=== PATIENT | male | born 1985 | race Caucasian/White ===

== ENCOUNTER 2018-11-25 17:33 | Inpatient (IN) | payer OTHER ==
--- NOTE | 2018-11-25 19:10 | HP ---
CIWA Score Nausea/Vomitin Muscle Tremors: 2 Anxiety: 3 Agitation: 2 Paroxysmal Sweats: 2 Orientation: 0-Oriented Tacttile Disturbances: 0-None Auditory Disturbances: 0-None Visual Disturbances: 0-None Headache: 0-None Present CIWA-Ar Total Score: 12 - Admission Criteria OASAS Guidelines: Admission for Medically Managed Detox: Requires at least one of the followin. CIWA greater than 12 2. Seizures within the past 24 hours 3. Delirium tremens within the past 24 hours 4. Hallucinations within the past 24 hours 5. Acute intervention needed for co occurring medical disorder 6. Acute intervention needed for co occurring psychiatric disorder 7. Severe withdrawal that cannot be handled at a lower level of care (continued vomiting, continued diarrhea, abnormal vital signs) requiring intravenous medication and/or fluids 8. Patient presents the following: CIWA greater than 12 Admission Criteria Met: Admission criteria met Admission ROS [facility] Chief Complaint: alcohol withdrawal symptoms Allergies/Adverse Reactions: Allergies Allergy/AdvReac Type Severity Reaction Status Date / Time No Known Allergies Allergy Verified 11/25/18 18:25 History of Present Illness: Patient is a 32 yo male with hx of K2, nicotine, alcohol, crack/cocaine, and heroin dependence is here seeking detox. Last detox Sep 2018 at [facility]. Denies hx of blackouts when consuming " a lot" of alcohol, last episode 2011. Reports prior hx of MAT with suboxone and stopped attending treatment. Denies hx seizures. Hx of overdose x 4, last episode April 2018. PMHX: Asthma, Schizo affective, bipolar, PTSD and anxiety. Denies suicidal / homicidal ideation. Reports hx of suicide on March 2015 admitted [facility] psych. Longest period of sobriety three months. Others' Prescriptions Patient Name: David Wright Date: 1985 Address: [address] [place] [address] Sex: Male Rx Written Rx Dispensed Drug Quantity Days Supply Prescriber Name 10/29/2018 10/29/2018 clonazepam 1 mg tablet 60 30 [facility] ( [facility] 09/19/2018 09/19/2018 clonazepam 1 mg tablet 14 14 DimFadia bryan ( [facility]) 09/12/2018 09/12/2018 clonazepam 2 mg tablet 60 30 Fadia Chavez ( [facility]) 07/29/2018 07/29/2018 clonazepam 1 mg tablet 120 30 Carola Yadav ([facility]) 06/10/2018 06/10/2018 clonazepam 1 mg tablet 120 30 JorgeharikatristinCarola ([facility]) Patient Name: David Wright Date: 1985 Address: [address] [facility] [place] [address] Sex: Male Rx Written Rx Dispensed Drug Quantity Days Supply Prescriber Name 07/04/2018 07/08/2018 clonazepam 2 mg tablet 30 15 Kimani Jean Patient Name: David Wright Date: 1985 Address: [address] [place] [employer], [place] [id number] Sex: Male Rx Written Rx Dispensed Drug Quantity Days Supply Prescriber Name 05/30/2018 05/30/2018 suboxone 12 mg-3 mg sl film 7 7 [place], [place] 05/14/2018 05/14/2018 suboxone 8 mg-2 mg sl film 15 15 [facility] 05/14/2018 05/14/2018 clonazepam 2 mg tablet 60 30 [facility] 04/01/2018 04/01/2018 clonazepam 2 mg tablet 60 30 Christian Cooper MD Exam Limitations: No Limitations - Ebola screening Have you traveled outside of the country in the last 21 days: No (N) Have you had contact with anyone from an Ebola affected area: No Do you have a fever: No - Review of Systems Constitutional: Chills, Loss of Appetite, Changes in sleep, Unintentional Wgt. Loss EENT: reports: No Symptoms Reported Respiratory: reports: No Symptoms reported Cardiac: reports: No Symptoms Reported GI: reports: Nausea, Poor Appetite, Poor Fluid Intake, Vomiting : reports: No Symptoms Reported Musculoskeletal: reports: Back Pain Integumentary: reports: Dryness, Pruritus Neuro: reports: No Symptoms reported Endocrine: reports: Increased Thirst Hematology: reports: No Symptoms Reported Psychiatric: reports: Orientated x3, Anxious Other Systems: Reviewed and Negative Patient History - Patient Medical History Hx Anemia: No Hx Asthma: Yes Hx Chronic Obstructive Pulmonary Disease (COPD): No Hx Cancer: No Hx Cardiac Disorders: No Hx Congestive Heart Failure: No Hx Hypertension: No Hx Hypercholesterolemia: No Hx Pacemaker: No HX Cerebrovascular Accident: No Hx Seizures: No Hx Dementia: No Hx Diabetes: No Hx Gastrointestinal Disorders: No Hx Liver Disease: No Hx Genitourinary Disorders: No Hx Sexually Transmitted Disorders: No Hx Renal Disease (ESRD): No Hx Thyroid Disease: No Hx Human Immunodeficiency Virus (HIV): No Hx Hepatitis C: No Hx Depression: Yes Hx Suicide Attempt: Yes Hx Schizophrenia: Yes (uicide on March 2015 admitted [facility] psych) - Patient Surgical History Past Surgical History: No - PPD History Previous Implant?: No - Smoking Cessation Smoking history: Current every day smoker Have you smoked in the past 12 months: Yes Aproximately how many cigarettes per day: 4 Hx Chewing Tobacco Use: No Initiated information on smoking cessation: Yes 'Breaking Loose' booklet given: 11/25/18 - Substance & Tx. History Hx Alcohol Use: Yes Hx Substance Use: Yes Substance Use Type: Alcohol, Cocaine, Heroin Hx Substance Use Treatment: Yes (Last detox Sep 2018 at [facility]. ) - Substances abused Alcohol Substance route: Oral Frequency: Daily Amount used: 1/2 pint liquor Age of first use: 16 (use 1/2 pint as of in past year ) Date of last use: 11/25/18 Heroin Substance route: Inhalation Frequency: Daily Amount used: 4 bags Age of first use: 23 (use 4 bags since 2014) Date of last use: 12/20/18 Crack Substance route: Smoking Frequency: Daily Amount used: 4 bags Age of first use: 19 (use four bags since 29 yo ) Date of last use: 11/25/18 K2/Spice Substance route: Smoking Frequency: Daily Amount used: 3 joints Age of first use: 29 Date of last use: 11/25/18 Family Disease History - Family Disease History Family History: Denies Admission Physical Exam [facility] - Vital Signs Vital Signs: Vital Signs - 24 hr 11/25/18 18:49 Temperature 97.8 F Pulse Rate 87 Respiratory 20 Rate Blood Pressure 110/61 - Physical General Appearance: Yes: Appropriately Dressed, Mild Distress, Thin, Sweating, Anxious HEENTM: Yes: EOMI, Hearing grossly Normal, Normal ENT Inspection, Normocephalic , Normal Voice, EZEQUIEL, Pharynx Normal, Tm's normal, Other (cheilitis) Respiratory: Yes: Chest Non-Tender, Lungs Clear, Normal Breath Sounds, No Respiratory Distress, No Accessory Muscle Use Neck: Yes: Within Normal Limits Breast: Yes: Breast Exam Deferred Cardiology: Yes: Regular Rhythm, Regular Rate Abdominal: Yes: Normal Bowel Sounds, Non Tender, Flat, Soft Genitourinary: Yes: Within Normal Limits Back: Yes: Normal Inspection Musculoskeletal: Yes: full range of Motion, Gait Steady, Pelvis Stable Extremities: Yes: Normal Capillary Refill, Normal Inspection, Normal Range of Motion Neurological: Yes: gourmet coffee attendant II-XII NML intact, Fully Oriented, Alert, Motor Strength 5/5, Depressed Affect Integumentary: Yes: Normal Color, Warm, Diaphoresis Lymphatic: Yes: Within Normal Limits - Diagnostic (1) Alcohol dependence with uncomplicated withdrawal Current Visit: Yes Status: Acute (2) Cocaine dependence Current Visit: Yes Status: Acute Qualifiers: Substance use status: uncomplicated Qualified Code(s): F14.20 - Cocaine dependence, uncomplicated (3) Heroin dependence Current Visit: Yes Status: Acute (4) Illicit drug use Current Visit: Yes Status: Acute (5) Nicotine dependence Current Visit: Yes Status: Acute Qualifiers: Nicotine product type: cigarettes (6) Asthma Current Visit: Yes Status: Chronic Qualifiers: Asthma severity: mild Asthma persistence: unspecified Asthma complication type: unspecified Qualified Code(s): J45.909 - Unspecified asthma , uncomplicated Cleared for Admission S - Detox or Rehab [facility] Level of Care: Medically Managed Detox Regimen/Protocol: Valium Breathalyzer - Breathalyzer Breathalyzer: 0 Urine Drug Screen - Test Device Lot number: [id number] Expiration date: 11/24/19 - Control Is test valid?: Yes - Results Drug screen NEGATIVE: No Urine drug screen results: THC-Marijuana, WHIT-Cocaine Inpatient Rehab Admission - Rehab Decision to Admit Inpatient rehab admission?: No
[2018-11-25] MEDS ORDERED: ACETAMINOPHEN 325 MG TABLET (FP) PO PRN ×2 (19:18)
[2018-11-25] MEDS ORDERED: MENTHOL/PHENOL 1 EACH UD MM PRN (19:18)
[2018-11-25] MEDS ORDERED: MAGNESIUM HYDROX 2400MG/30ML ORAL SUSPENSION 30 ML CUP PO PRN (19:18)
[2018-11-25] MEDS ORDERED: IBUPROFEN 400 MG TABLET (FP) PO PRN (19:18)
[2018-11-25] MEDS ORDERED: diazePAM 5 MG TABLET PO PRN (19:18)
[2018-11-25] MEDS ORDERED: MAG HYDROX/AL HYDROX/SIMETH 30 ML UNIT-DOSE CUP PO PRN (19:18)
[2018-11-25] MEDS ORDERED: MAGNESIUM CITRATE 300 ML BOTTLE PO PRN (19:18)
[2018-11-25] MEDS ORDERED: BISMUTH SUBSALICYLATE 524 MG/30 ML UD PO PRN (19:18)
[2018-11-25] MEDS ORDERED: P-EPHED 60MG/TRIPROLIDI 2.5MG TABLET PO PRN (19:18)
[2018-11-25] MEDS ORDERED: METHOCARBAMOL 500 MG TABLET PO PRN (19:18)
[2018-11-25] MEDS ORDERED: hydrOXYzine PAMOATE 25 MG CAPSULE (FP) PO PRN (19:18)
[2018-11-25] MEDS ORDERED: guaiFENesin 200 MG/10 ML 10 ML UNIT-DOSE CUPS PO PRN (19:18)
[2018-11-25] MEDS ORDERED: NICOTINE POLACRILEX 2 MG GUM BUC PRN (19:18)
[2018-11-25] MEDS: diazePAM 5 MG TABLET PO SCH (21:04)
[2018-11-25] MEDS: THIAMINE HCL 100 MG TABLET (FP) PO SCH (21:06)
[2018-11-26] MEDS: diazePAM 5 MG TABLET PO SCH ×3 (05:53→22:08)
[2018-11-26 10:04] LABS: HEMATOCRIT 43.9 % (35.4-49); HEMOGLOBIN 14.8 GM/dL (11.7-16.9); MCH 31.8 pg (25.7-33.7); MCHC 33.8 g/dl (32.0-35.9); MEAN PLT VOLUME 8.8 fl (7.5-11.1); PLATELET COUNT 207 K/MM3 (134-434); RBC 4.66 M/mm3 (4.00-5.60); RDW 14.5 % (11.9-15.9); WHITE BLOOD COUNT 4.7 K/mm3 (4.0-10.0)
[2018-11-26] MEDS: PRENATAL VITAMINS W/ FOLIC ACID TABLET (FP) PO SCH (10:22)
[2018-11-26] MEDS: NICOTINE 14 MG/24 HOURS TOPICAL PATCH TD SCH (10:22)
[2018-11-26 10:38] LABS: ALBUMIN 4.1 g/dl (3.4-5.0); ALK PHOS 97 U/L (45-117); ANION GAP 4 MMOL/L (8-16); BLOOD UREA NITROGEN 13 mg/dL (7-18); CALCIUM 9.1 mg/dL (8.5-10.1); CHLORIDE 107 mmol/L (98-107); CO2 28 mmol/L (21-32); GLUCOSE,RANDOM 100 mg/dL (74-106); POTASSIUM 4.2 mmol/L (3.5-5.1); SGOT/AST 218 U/L (15-37); SGPT/ALT 516 U/L (13-61); SODIUM 139 mmol/L (136-145); TOT PROT 7.3 g/dl (6.4-8.2)
[2018-11-26 12:38] LABS: EPI CELLS 0.4 /HPF (0-5); PH,URINE 6.5 (5.0-8.0); URINE APPEARANCE TURBID; URINE BACTERIA 109.7 /hpf (NEGATIVE); URINE BILIRUBIN NEGATIVE (NEGATIVE); URINE CASTS 13 /hpf (0-8); URINE COLOR DK YELLOW; URINE GLUCOSE (UA) NEGATIVE (NEGATIVE); URINE KETONE TRACE (NEGATIVE); URINE LEUK ESTERASE TRACE (NEGATIVE); URINE NITRITE NEGATIVE (NEGATIVE); URINE PROTEIN NEGATIVE (NEGATIVE); URINE RBC 1 /hpf (0-4); URINE WBC 0 /hpf (0-5)
[2018-11-26 13:00] LABS: URINE CRYSTALS CALCIUM OXALTE SEEN /hpf
--- NOTE | 2018-11-26 14:46 | EKG ---
Test Reason : Blood Pressure : / mmHG Vent. Rate : 065 BPM Atrial Rate : 065 BPM P-R Int : 152 ms QRS Dur : 090 ms QT Int : 384 ms P-R-T Axes : 053 062 053 degrees QTc Int : 399 ms NORMAL SINUS RHYTHM NORMAL ECG NO PREVIOUS ECGS AVAILABLE Confirmed by Sean Ochoa ([id number]) on 11/26/2018 2:46:01 PM Referred By: AMOS CASILLAS Confirmed By:Sean Ochoa
--- NOTE | 2018-11-26 15:18 | PN ---
S CIWA - CIWA Score Nausea/Vomitin Muscle Tremors: 3 Anxiety: 0-No Anxiety, at Ease Agitation: 0-Normal Activity Paroxysmal Sweats: 3 Orientation: 0-Oriented Tacttile Disturbances: 2-Mild Itch/Numbness/Burn Auditory Disturbances: 0-None Visual Disturbances: 2-Mild Sensitivity Headache: 0-None Present CIWA-Ar Total Score: 12 BHS Progress Note (SOAP) Subjective: Sweating, Fatigue, Chills, Tremors. Objective: PATIENT A & O X 3, OBSERVED AMBULATING ON UNIT. IN NO ACUTE DISTRESS. 11/26/18 15:15 Vital Signs Temperature 97.1 F L 11/26/18 13:19 Pulse Rate 72 11/26/18 13:19 Respiratory Rate 18 11/26/18 13:19 Blood Pressure 102/66 11/26/18 13:19 O2 Sat by Pulse Oximetry (%) Laboratory Tests 11/26/18 11/26/18 11/26/18 00:00 07:00 07:00 WBC 4.7 RBC 4.66 Hgb 14.8 Hct 43.9 MCV 94.0 MCH 31.8 MCHC 33.8 RDW 14.5 Plt Count 207 MPV 8.8 Sodium 139 Potassium 4.2 Chloride 107 Carbon Dioxide 28 Anion Gap 4 L BUN 13 Creatinine 1.0 Creat Clearance w eGFR 86.60 Random Glucose 100 Calcium 9.1 Total Bilirubin 1.0 AST 218 H ALT 516 H Alkaline Phosphatase 97 Total Protein 7.3 Albumin 4.1 Urine Color Dk yellow Urine Appearance Turbid Urine pH 6.5 Ur Specific [place] 1.025 Urine Protein Negative Urine Glucose (UA) Negative Urine Ketones Trace H Urine Blood Negative Urine Nitrite Negative Urine Bilirubin Negative Urine Urobilinogen 1.0 Ur Leukocyte Esterase Trace Urine WBC (Auto) 0 Urine RBC (Auto) 1 Urine Casts (Auto) 13 U Epithel Cells (Auto) 0.4 Urine Crystals (Auto) Calcium oxalte seen Urine Bacteria (Auto) 109.7 LABS NOTED. RPR RESULT PENDING. 11/26/18 15:17 Assessment: 11/26/18 15:16 WITHDRAWAL SYMPTOMS. ELEVATED LIVER ENZYMES. Plan: CONTINUE DETOX. INCREASE DAILY PO FLUID INTAKE. REPEAT AST, ALT TOMORROW AM FOR ELEVATED ADMISSION LEVELS.
--- NOTE | 2018-11-26 15:42 | CONSULT ---
[facility] Psychiatric Consult - Data Date of interview: 11/26/18 Admission source: [facility] Identifying data: First admission to [facility] for this 32 y/o male self-referred for detoxification treatment (heroin, cocaine, K2). Examined at [address] [place] [address]. Patient is single, no children, homeless (resides in a snf), unemployed and supported on SSI benefits. Substance Abuse History: Confirmed by the patient in this interview. Details in current [facility] report : Smoking history: Current every day smoker. Have you smoked in the past 12 months: Yes. Aproximately how many cigarettes per day: 4. Hx Chewing Tobacco Use: No. Initiated information on smoking cessation: Yes. 'Breaking Loose' booklet given: 11/25/18. - Substance & Tx. History. Hx Alcohol Use: Yes. Hx Substance Use: Yes. Substance Use Type: Alcohol, Cocaine , Heroin. Hx Substance Use Treatment: Yes (Last detox Sep 2018 at [facility]. ). - Substances abused. Alcohol. Substance route: Oral. Frequency: Daily. Amount used: 1/2 pint liquor. Age of first use: 16 (use 1/2 pint as of in past year ). Date of last use: 11/25/18. Heroin. Substance route: Inhalation. Frequency: Daily. Amount used: 4 bags. Age of first use: 23 (use 4 bags since 2014). Date of last use: 12/20/18. Crack. Substance route: Smoking. Frequency: Daily. Amount used: 4 bags. Age of first use: 19 ( use four bags since 29 yo ). Date of last use: 11/25/18. K2/Spice. Substance route: Smoking. Frequency: Daily. Amount used: 3 joints. Age of first use: 29. Date of last use: 11/25/18 Medical History: Patient endorses good general health. History of bronchial asthma. Psychiatric History: Patient admits to a history of multiple psychiatric hospitalizations ([facility], [facility]-2). Onset of psychiatric disturbances : age 19. Diagnosed with " Schizophrenia and Bipolar Disorder ". Mr Wright reports past treatment on various regimens consisting of olanzapine, quetiapine, gabapentin, clonazepam and other unnamed formulations. NOT adherent to medications " for past TWO weeks ". Patient is officially connected with [facility] in the [place]. Multiple suicide attempts via overdoses with dugs (most recent attempt occurred in 2014). Physical/Sexual Abuse/Trauma History: Patient denies history of abuse. Estranged from his relatives. Additional Comment: Urine drug screen results: THC-Marijuana, WHIT-Cocaine. Noted. Mental Status Exam - Mental Status Exam Alert and Oriented to: Time, Place, Person Cognitive Function: Good Patient Appearance: Well Groomed (tattoos on both forearms) Mood: Nervous, Withdrawn Affect: Mood Congruent Patient Behavior: Fatigued, Talkative, Appropriate, Cooperative Speech Pattern: Clear, Appropriate Voice Loudness: Normal Thought Process: Goal Oriented Thought Disorder: Not Present Hallucinations: Denies Suicidal Ideation: Denies Homicidal Ideation: Denies Insight/Judgement: Poor Sleep: Poorly, Difficulty falling asleep Appetite: Good Muscle strength/Tone: Normal Gait/Station: Normal Psychiatric Findings - Problem List ([place] 1, 2,3) (1) Alcohol dependence with uncomplicated withdrawal Current Visit: Yes Status: Acute (2) Cocaine dependence Current Visit: Yes Status: Chronic Qualifiers: Substance use status: uncomplicated Qualified Code(s): F14.20 - Cocaine dependence, uncomplicated (3) Heroin dependence Current Visit: Yes Status: Chronic (4) Nicotine dependence Current Visit: Yes Status: Chronic Qualifiers: Nicotine product type: cigarettes (5) History of bipolar disorder Current Visit: Yes Status: Chronic (6) Insomnia Current Visit: Yes Status: Chronic (7) Non-compliant patient Current Visit: Yes Status: Chronic - Initial Treatment Plan Initial Treatment Plan: Psychoeducation. Sleep hygiene. Support. Detoxification. AA/NA meetings. Relapse prevention : discussed with the patient. Motivational sessions. Groups. Patient has expressed the wish to enlist in rehabilitation at completion of this program. Social work team will follow. Seroquel 100 mg po hs at patient's request. Side effects/benefits are discussed. Consent (verbal) granted to MD. Soriano.
[2018-11-26] MEDS: THIAMINE HCL 100 MG TABLET (FP) PO SCH (22:09)
[2018-11-26] MEDS: MELATONIN 5 MG TABLETS PO PRN (22:09)
[2018-11-27] MEDS: PRENATAL VITAMINS W/ FOLIC ACID TABLET (FP) PO SCH (10:26)
[2018-11-27] MEDS: diazePAM 5 MG TABLET PO SCH ×2 (10:26→22:26)
[2018-11-27] MEDS: NICOTINE 14 MG/24 HOURS TOPICAL PATCH TD SCH (10:26)
[2018-11-27 13:01] LABS: SGOT/AST 189 U/L (15-37); SGPT/ALT 497 U/L (13-61)
--- NOTE | 2018-11-27 16:48 | PN ---
S CIWA - CIWA Score Nausea/Vomitin-No Nausea/No Vomiting Muscle Tremors: 3 Anxiety: 2 Agitation: 0-Normal Activity Paroxysmal Sweats: 3 Orientation: 0-Oriented Tacttile Disturbances: 1-Very Mild Itch/Numbness Auditory Disturbances: 0-None Visual Disturbances: 1-Very Mild Sensitivity Headache: 0-None Present CIWA-Ar Total Score: 10 BHS Progress Note (SOAP) Subjective: Sweating, Fatigue, Tremors. Objective: PATIENT A & O X 3, OBSERVED AMBULATING ON UNIT. IN NO ACUTE DISTRESS. 11/27/18 16:49 Vital Signs Temperature 98.3 F 11/27/18 14:25 Pulse Rate 72 11/27/18 14:25 Respiratory Rate 18 11/27/18 14:25 Blood Pressure 114/69 11/27/18 14:25 O2 Sat by Pulse Oximetry (%) Laboratory Tests 11/26/18 11/26/18 11/26/18 00:00 07:00 07:00 WBC 4.7 RBC 4.66 Hgb 14.8 Hct 43.9 MCV 94.0 MCH 31.8 MCHC 33.8 RDW 14.5 Plt Count 207 MPV 8.8 Sodium 139 Potassium 4.2 Chloride 107 Carbon Dioxide 28 Anion Gap 4 L BUN 13 Creatinine 1.0 Creat Clearance w eGFR 86.60 Random Glucose 100 Calcium 9.1 Total Bilirubin 1.0 AST 218 H ALT 516 H Alkaline Phosphatase 97 Total Protein 7.3 Albumin 4.1 Urine Color Dk yellow Urine Appearance Turbid Urine pH 6.5 Ur Specific [place] 1.025 Urine Protein Negative Urine Glucose (UA) Negative Urine Ketones Trace H Urine Blood Negative Urine Nitrite Negative Urine Bilirubin Negative Urine Urobilinogen 1.0 Ur Leukocyte Esterase Trace Urine WBC (Auto) 0 Urine RBC (Auto) 1 Urine Casts (Auto) 13 U Epithel Cells (Auto) 0.4 Urine Crystals (Auto) Calcium oxalte seen Urine Bacteria (Auto) 109.7 RPR Titer 11/26/18 11/27/18 07:00 07:00 WBC RBC Hgb Hct MCV MCH MCHC RDW Plt Count MPV Sodium Potassium Chloride Carbon Dioxide Anion Gap BUN Creatinine Creat Clearance w eGFR Random Glucose Calcium Total Bilirubin AST 189 H ALT 497 H Alkaline Phosphatase Total Protein Albumin Urine Color Urine Appearance Urine pH Ur Specific [place] Urine Protein Urine Glucose (UA) Urine Ketones Urine Blood Urine Nitrite Urine Bilirubin Urine Urobilinogen Ur Leukocyte Esterase Urine WBC (Auto) Urine RBC (Auto) Urine Casts (Auto) U Epithel Cells (Auto) Urine Crystals (Auto) Urine Bacteria (Auto) RPR Titer Nonreactive LABS NOTED. RESULTS OF REPEAT AST AND ALT LEVELS NOTED. MINOR REDUCTION NOTED IN BOTH LEVELS. 11/27/18 16:50 Assessment: 11/27/18 16:49 WITHDRAWAL SYMPTOMS. Plan: CONTINUE DETOX.
[2018-11-27] MEDS: THIAMINE HCL 100 MG TABLET (FP) PO SCH (22:25)
[2018-11-27] MEDS: MELATONIN 5 MG TABLETS PO PRN (22:25)
[2018-11-28] MEDS ORDERED: diazePAM 5 MG TABLET PO SCH (06:00)
[2018-11-28 09:14] VITALS: BP 106/89; PULSE 72; TEMP 96.8
[2018-11-28] MEDS: PRENATAL VITAMINS W/ FOLIC ACID TABLET (FP) PO SCH (10:10)
[2018-11-28] MEDS: NICOTINE 14 MG/24 HOURS TOPICAL PATCH TD SCH (10:11)
--- NOTE | 2018-11-28 19:47 | DS ---
[facility] Detox Discharge Summary Admission Date: 11/25/18 Discharge Date: 11/28/18 - History Present History: Alcohol Dependence, Cocaine Dependence, Opioid Dependence Additional Comments: PATIENT GOING TO [facility] ([place], [place]) FOR AFTERCARE. PATIENT ADVISED TO FOLLOW-UP WITH FARM PRODUCT PURCHASER AFTER DISCHARGE FROM REHAB FOR GENERAL MEDICAL ASSESSMENT AND FOR ELEVATED LIVER ENZYMES NOTED ON DETOX ADMISSION AND REPEAT LABORATORY ASSESSMENTS. PATIENT VERBALIZED UNDERSTANDING OF RECOMMENDATION. PATIENT WAS DISCHARGED FROM DETOX UNIT IN STABLE MEDICAL CONDITION. Pertinent Past History: Asthma, Depression, Schizoaffective Disorder, Nicotine Dependence, Elevated Liver Enzymes. - Physical Exam Results Vital Signs: Vital Signs Temperature 96.8 F L 11/28/18 09:14 Pulse Rate 72 11/28/18 09:14 Respiratory Rate 18 11/28/18 09:14 Blood Pressure 106/89 11/28/18 09:14 O2 Sat by Pulse Oximetry (%) Pertinent Admission Physical Exam Findings: WITHDRAWAL SYMPTOMS. Laboratory Tests 11/26/18 11/26/18 11/26/18 00:00 07:00 07:00 WBC 4.7 RBC 4.66 Hgb 14.8 Hct 43.9 MCV 94.0 MCH 31.8 MCHC 33.8 RDW 14.5 Plt Count 207 MPV 8.8 Sodium 139 Potassium 4.2 Chloride 107 Carbon Dioxide 28 Anion Gap 4 L BUN 13 Creatinine 1.0 Creat Clearance w eGFR 86.60 Random Glucose 100 Calcium 9.1 Total Bilirubin 1.0 AST 218 H ALT 516 H Alkaline Phosphatase 97 Total Protein 7.3 Albumin 4.1 Urine Color Dk yellow Urine Appearance Turbid Urine pH 6.5 Ur Specific [place] 1.025 Urine Protein Negative Urine Glucose (UA) Negative Urine Ketones Trace H Urine Blood Negative Urine Nitrite Negative Urine Bilirubin Negative Urine Urobilinogen 1.0 Ur Leukocyte Esterase Trace Urine WBC (Auto) 0 Urine RBC (Auto) 1 Urine Casts (Auto) 13 U Epithel Cells (Auto) 0.4 Urine Crystals (Auto) Calcium oxalte seen Urine Bacteria (Auto) 109.7 RPR Titer 11/26/18 11/27/18 07:00 07:00 WBC RBC Hgb Hct MCV MCH MCHC RDW Plt Count MPV Sodium Potassium Chloride Carbon Dioxide Anion Gap BUN Creatinine Creat Clearance w eGFR Random Glucose Calcium Total Bilirubin AST 189 H ALT 497 H Alkaline Phosphatase Total Protein Albumin Urine Color Urine Appearance Urine pH Ur Specific [place] Urine Protein Urine Glucose (UA) Urine Ketones Urine Blood Urine Nitrite Urine Bilirubin Urine Urobilinogen Ur Leukocyte Esterase Urine WBC (Auto) Urine RBC (Auto) Urine Casts (Auto) U Epithel Cells (Auto) Urine Crystals (Auto) Urine Bacteria (Auto) RPR Titer Nonreactive LABS NOTED. - Treatment Hospital Course: Detox Protocol Followed, Detoxed Safely, Responded well, Discharged Condition Good, Rehab Referral Accepted Patient has Accepted a Rehab Referral to: [facility] ([place], [place]). - Medication Discharge Medications: Ambulatory Orders Gabapentin 400 mg PO QID 11/25/18 Olanzapine [Zyprexa] 10 mg PO HS 11/25/18 Paroxetine HCl [Paxil] 10 mg PO DAILY 11/25/18 Quetiapine Fumarate [Seroquel] 200 mg PO HS 11/25/18 Albuterol Sulfate Inhaler - [Ventolin HFA Inhaler -] 1 - 2 puff IH PRN PRN #1 inhaler 11/28/18 - Diagnosis (1) Alcohol dependence with uncomplicated withdrawal Status: Acute (2) Elevated liver enzymes Status: Acute (3) Illicit drug use Status: Acute (4) Asthma Status: Chronic Qualifiers: Asthma severity: mild Asthma persistence: unspecified Asthma complication type: unspecified Qualified Code(s): J45.909 - Unspecified asthma , uncomplicated (5) Cocaine dependence Status: Chronic Qualifiers: Substance use status: uncomplicated Qualified Code(s): F14.20 - Cocaine dependence, uncomplicated (6) Heroin dependence Status: Chronic (7) History of bipolar disorder Status: Chronic (8) Insomnia Status: Chronic Qualifiers: Insomnia type: unspecified Qualified Code(s): G47.00 - Insomnia, unspecified (9) Nicotine dependence Status: Chronic Qualifiers: Nicotine product type: cigarettes Substance use status: uncomplicated Qualified Code(s): F17.210 - Nicotine dependence, cigarettes, uncomplicated (10) Non-compliant patient Status: Chronic - AMA Did Patient Leave Against Medical Advice: No
== END 2018-11-28 10:30 | disposition home or self-care (01) | DRG 773 ==
LOC: YASAS 17:33 → Y3N 20:30
PROVIDERS: ADMIT Surgery; ATTEND Surgery
PROC: HZ2ZZZZ Detoxification Services for Substance Abuse Treatment (ICD-10-PCS; principal; 2018-11-25)
DX: F11.23 Opioid dependence with withdrawal (principal); F10.230 Alcohol dependence with withdrawal, uncomplicated; F14.20 Cocaine dependence, uncomplicated; F17.210 Nicotine dependence, cigarettes, uncomplicated; J45.909 Unspecified asthma, uncomplicated; G47.00 Insomnia, unspecified; R94.5 Abnormal results of liver function studies; Z91.19 Patient's noncompliance with other medical treatment and regimen; Z91.5 Personal history of self-harm
CPT/HCPCS: 36415; 80053; 81003; 84450; 84460; 85027; 86593; 93005; 93010

== ENCOUNTER 2019-02-25 12:18 | Inpatient (IN) | payer OTHER ==
[2019-02-25 12:45] VITALS: BMI 27.3
--- NOTE | 2019-02-25 14:02 | HP ---
COWS - Scale Resting Pulse: 0= [place] 80 or Below Sweatin= Chills/Flushing Restless Observation: 1= Difficult to Sit Still Pupil Size: 0= Normal to Room Light Bone or Joint Aches: 2= Severe Diffuse Aches Runny Nose/ Eye Tearin= Runny Nose/Eyes GI Upset > 30mins: 0= None Tremor Observation: 1= Tremor [place], Not Seen Yawning Observation: 1= 1-2x During Session Anxiety or Irritability: 0= None Goose Flesh Skin: 3=Piloerection COWS Score: 11 CIWA Score - Admission Criteria OASAS Guidelines: Admission for Medically Managed Detox: Requires at least one of the followin. CIWA greater than 12 2. Seizures within the past 24 hours 3. Delirium tremens within the past 24 hours 4. Hallucinations within the past 24 hours 5. Acute intervention needed for co occurring medical disorder 6. Acute intervention needed for co occurring psychiatric disorder 7. Severe withdrawal that cannot be handled at a lower level of care (continued vomiting, continued diarrhea, abnormal vital signs) requiring intravenous medication and/or fluids 8. Admission [facility] Chief Complaint: 33 y/o M with PMH bipolar, anxiety, who presents for heroin and cocaine detox. Per pt, he was last in detox in Sep, and November 2018. Last used 4 bags of heroin last night, IVDA. Uses 4 bags qd. Has never had endocarditis. Last OD on heroin 2017. Also uses 4 bags cocaine qd, spends $40 total on it; IVDA. Has never blacked out, or had seizures. Also uses K2 few joints/day gets from street. Has lived in a fci. Does not have emotional support from family or friends. PMH: bipolar, anxiety PsxH: denies meds: buspar 15mg BID, zyprexa 15 mg qHS, gabapentin 300mg TID for anxiety, restoril 50mg qd for insomnia allergies: NKDA FH: denies SH: lives in a fci. drug use as above alcohol- denies however detox in September was for alcohol, heroin cocaine has smoked 1 ppd cigarettes since age 16 Allergies/Adverse Reactions: Allergies Allergy/AdvReac Type Severity Reaction Status Date / Time No Known Allergies Allergy Verified 02/25/19 12:33 History of Present Illness: 33 y/o M with PMH bipolar, anxiety, who presents for heroin and cocaine detox. Exam Limitations: No Limitations - Ebola screening Have you traveled outside of the country in the last 21 days: No Have you had contact with anyone from an Ebola affected area: No Do you have a fever: No - Review of Systems Constitutional: No Symptoms Reported EENT: reports: Blurred Vision Respiratory: reports: No Symptoms reported Cardiac: reports: No Symptoms Reported GI: reports: Nausea : reports: No Symptoms Reported Musculoskeletal: reports: Muscle Pain, Muscle Weakness Integumentary: reports: No Symptoms Reported Neuro: reports: No Symptoms reported Endocrine: reports: No Symptoms Reported Hematology: reports: No Symptoms Reported Psychiatric: reports: No Sypmtoms Reported Patient History - Patient Medical History Hx Anemia: No Hx Asthma: Yes (takes ventolin) Hx Chronic Obstructive Pulmonary Disease (COPD): No Hx Cancer: No Hx Cardiac Disorders: No Hx Congestive Heart Failure: No Hx Hypertension: No Hx Hypercholesterolemia: No Hx Pacemaker: No HX Cerebrovascular Accident: No Hx Seizures: No Hx Dementia: No Hx Diabetes: No Hx Gastrointestinal Disorders: No Hx Liver Disease: No Hx Genitourinary Disorders: No Hx Sexually Transmitted Disorders: No Hx Renal Disease (ESRD): No Hx Thyroid Disease: No Hx Human Immunodeficiency Virus (HIV): No Hx Hepatitis C: No Hx Depression: Yes Hx Suicide Attempt: Yes Hx Schizophrenia: No - Patient Surgical History Past Surgical History: No Hx Neurologic Surgery: No Hx Cataract Extraction: No Hx Cardiac Surgery: No Hx Lung Surgery: No Hx Breast Surgery: No Hx Breast Biopsy: No Hx Abdominal Surgery: No Hx Appendectomy: No Hx Cholecystectomy: No Hx Genitourinary Surgery: No Hx Section: No Hx Orthopedic Surgery: No Anesthesia Reaction: No - PPD History Documented Results: Negative w/o proof Date: 11/27/18 PPD to be Administered?: No - Reproductive History Patient is a Female of Child Bearing Age (11 -55 yrs old): No - Smoking Cessation Smoking history: Current every day smoker Have you smoked in the past 12 months: Yes Aproximately how many cigarettes per day: 4 Hx Chewing Tobacco Use: No Initiated information on smoking cessation: Yes 'Breaking Loose' booklet given: 02/25/19 - Substance & Tx. History Hx Alcohol Use: Yes Hx Substance Use: Yes Substance Use Type: Alcohol, Cocaine, Heroin Hx Substance Use Treatment: Yes ([facility] detox 09/2018, 11/2018) - Substances abused Alcohol Substance route: Oral Frequency: No use in 30 days Date of last use: 11/25/18 Other Other (specify): Heroin Substance route: Injection Frequency: Daily Amount used: 4 BAGS Age of first use: 23 Date of last use: 02/25/19 Crack Substance route: Smoking Frequency: Daily Amount used: 4 bags Age of first use: 19 Date of last use: 11/25/18 K2/Spice Substance route: Smoking Frequency: Daily Amount used: 4 joints Age of first use: 25 Date of last use: 11/26/18 Cocaine Substance route: Injection Frequency: Daily Amount used: 4 BAGS Age of first use: 29 Date of last use: 02/25/19 Family Disease History - Family Disease History Family History: Denies Admission Physical Exam [facility] - Vital Signs Vital Signs: Vital Signs - 24 hr 02/25/19 12:30 Temperature 97.9 F Pulse Rate 76 Respiratory 16 Rate Blood Pressure 109/77 - Physical General Appearance: Yes: Within Normal Limits, Other (+lethargic) HEENTM: Yes: Within Normal Limits, EOMI Respiratory: Yes: Lungs Clear, No Accessory Muscle Use Neck: Yes: Within Normal Limits Breast: Yes: Breast Exam Deferred Cardiology: Yes: Regular Rhythm, Regular Rate, S1, S2 Abdominal: Yes: Within Normal Limits, Non Tender, Soft Genitourinary: Yes: Within Normal Limits Back: Yes: Within Normal Limits Musculoskeletal: Yes: Muscle weakness 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 Integumentary: Yes: Dry, Warm Lymphatic: Yes: Within Normal Limits - Diagnostic (1) Heroin withdrawal Current Visit: Yes Status: Acute (2) IVDU (intravenous drug user) Current Visit: Yes Status: Acute (3) Bipolar disorder Current Visit: Yes Status: Acute (4) Anxiety Current Visit: Yes Status: Acute (5) Synthetic cannabis-induced anxiety disorder Current Visit: Yes Status: Acute (6) Asthma Current Visit: No Status: Chronic Qualifiers: Asthma severity: mild Asthma persistence: unspecified Asthma complication type: unspecified Qualified Code(s): J45.909 - Unspecified asthma , uncomplicated (7) Cocaine dependence Current Visit: No Status: Chronic Qualifiers: Substance use status: uncomplicated Qualified Code(s): F14.20 - Cocaine dependence, uncomplicated Cleared for Admission [facility] - Detox or Rehab [facility] Level of Care: Medically Managed Detox Regimen/Protocol: Methadone Breathalyzer - Breathalyzer Breathalyzer: 0 Urine Drug Screen - Test Device Lot number: [id number] Expiration date: 10/24/20 - Control Is test valid?: Yes - Results Drug screen NEGATIVE: No Urine drug screen results: WHIT-Cocaine, FEN-Fentanyl, MOP-Opiates, BUP-Suboxone Inpatient Rehab Admission - Rehab Decision to Admit Inpatient rehab admission?: No
[2019-02-25] MEDS ORDERED: cloNIDine HCL 0.1 MG TABLET PO PRN (14:19)
[2019-02-25] MEDS ORDERED: BISMUTH SUBSALICYLATE 262 MG/15 ML BTL PO PRN (14:21)
[2019-02-25] MEDS ORDERED: MAG HYDROX/AL HYDROX/SIMETH 30 ML UNIT-DOSE CUP PO PRN (14:21)
[2019-02-25] MEDS ORDERED: MAGNESIUM HYDROX 2400MG/30ML ORAL SUSPENSION 30 ML CUP PO PRN (14:21)
[2019-02-25] MEDS ORDERED: ACETAMINOPHEN 325 MG TABLET (FP) PO PRN ×2 (14:21)
[2019-02-25] MEDS ORDERED: METHOCARBAMOL 500 MG TABLET PO PRN (14:21)
[2019-02-25] MEDS ORDERED: MELATONIN 5 MG TABLETS PO PRN (14:21)
[2019-02-25] MEDS ORDERED: MAGNESIUM CITRATE 300 ML BOTTLE PO PRN (14:21)
[2019-02-25] MEDS ORDERED: NICOTINE POLACRILEX 2 MG GUM BUC PRN (14:21)
[2019-02-25] MEDS ORDERED: MENTHOL/PHENOL 1 EACH UD MM PRN (14:21)
[2019-02-25] MEDS ORDERED: hydrOXYzine PAMOATE 25 MG CAPSULE (FP) PO PRN (14:21)
[2019-02-25] MEDS ORDERED: IBUPROFEN 400 MG TABLET (FP) PO PRN (14:21)
[2019-02-25] MEDS ORDERED: ALBUTEROL SO4 8 GM HFA INHALER IH PRN (14:24)
[2019-02-25] MEDS ORDERED: METHADONE HCL 10 MG TABLET (FOR DETOX USE ONLY) PO ONE (15:00)
[2019-02-25 17:44] LABS: HEMATOCRIT 38.2 % (35.4-49); HEMOGLOBIN 12.9 GM/dL (11.7-16.9); MCH 31.4 pg (25.7-33.7); MCHC 33.7 g/dl (32.0-35.9); MEAN CELL VOLUME 93.2 fl (80-96); PLATELET COUNT 224 K/MM3 (134-434); RDW 13.7 % (11.9-15.9); WHITE BLOOD COUNT 8.9 K/mm3 (4.0-10.0)
[2019-02-25 17:54] LABS: ALBUMIN 4.1 g/dl (3.4-5.0); BILIRUBIN,TOTAL 0.9 mg/dL (0.2-1); BLOOD UREA NITROGEN 13.1 mg/dL (7-18); CALCIUM 8.9 mg/dL (8.5-10.1); CREATININE 0.8 mg/dL (0.55-1.3); POTASSIUM 3.9 mmol/L (3.5-5.1); TOT PROT 7.1 g/dl (6.4-8.2)
[2019-02-25] MEDS: THIAMINE HCL 100 MG TABLET (FP) PO SCH (22:24)
--- NOTE | 2019-02-26 07:01 | CONSULT ---
[facility] Psychiatric Consult - Data Date of interview: 02/26/19 Admission source: Self-referred Identifying data: Mr Wright is a 33 years old single male, unemployed receving SSI, homeless seeking detox treatment for opioid, cocaine and synthetic cannabis Substance Abuse History: Reports history of heroin, cocaine and k2 use. Refer to addiction counselor's summary for further information Medical History: Significant for bronchial asthma and hepatitis C. Smokes 4 cigarette daily Psychiatric History: Patient reports petar his first psychiatric contact was at age 13 when he was diagnosed with ADHD and started on Ritalin. Reports that at age 19, Bipolar disorder and PTSD were added as diagnoses. Reports multiple psychiatric hospitalizations at various facilities including [facility]), [facility] and most recently earlier 2018 to [facility]. Reports receiving outpatient psychiatric treatment at [facility] in the [place] and he is prescribed Paxil 10 mg/day, Buspar 15 mg/bid, Gabapentin 300 mg/tid, Zyprexa 15 mg/hs and Vistaril 50 mg/ tid. Reluctantly admits to multiple previous suicidal attempts with most recent in 2014 via overdose. At present, denies experiencing psychotic, manic symptoms , S/H ideations. However, reports feeling depressed and sleeping poorly Physical/Sexual Abuse/Trauma History: Patient denies history of any type of abuse as well as DV relationship. Estranged from his relatives. Additional Comment: Denies criminal history Mental Status Exam - Mental Status Exam Alert and Oriented to: Time, Place, Person Cognitive Function: Fair Patient Appearance: Well Groomed Mood: Depressed Affect: Appropriate Patient Behavior: Guarded Speech Pattern: Clear Voice Loudness: Normal Thought Process: Intact, Goal Oriented Hallucinations: Denies Suicidal Ideation: Denies Homicidal Ideation: Denies Insight/Judgement: Poor Appetite: Good Muscle strength/Tone: Normal Gait/Station: Normal Psychiatric Findings - Problem List ([place] 1, 2,3) (1) Bipolar disorder Current Visit: Yes Status: Chronic (2) PTSD (post-traumatic stress disorder) Current Visit: Yes Status: Acute (3) Substance induced mood disorder Current Visit: Yes Status: Acute (4) Substance-induced sleep disorder Current Visit: Yes Status: Acute (5) Opioid dependence, uncomplicated Current Visit: Yes Status: Acute (6) Cocaine dependence Current Visit: No Status: Chronic Qualifiers: Substance use status: uncomplicated Qualified Code(s): F14.20 - Cocaine dependence, uncomplicated (7) Cannabis dependence Current Visit: Yes Status: Acute (8) Nicotine dependence Current Visit: No Status: Chronic Qualifiers: Nicotine product type: cigarettes Substance use status: uncomplicated Qualified Code(s): F17.210 - Nicotine dependence, cigarettes, uncomplicated (9) Asthma Current Visit: No Status: Chronic Qualifiers: Asthma severity: mild Asthma persistence: unspecified Asthma complication type: unspecified Qualified Code(s): J45.909 - Unspecified asthma , uncomplicated - Initial Treatment Plan Initial Treatment Plan: 1) Continue Paxil 10 mg po daily, Buspar 15 mg po BID, Gabapentin 300 mg po TID an Zyprexa 15 mg po HS. 2) Start Vistaril 50 mg po Q 4hrs prn for anxiety. 3) Continue inpatient detoxification
[2019-02-26 08:44] LABS: URINE APPEARANCE CLOUDY; URINE BILIRUBIN NEGATIVE (NEGATIVE); URINE COLOR YELLOW; URINE GLUCOSE (UA) NEGATIVE (NEGATIVE); URINE KETONE NEGATIVE (NEGATIVE); URINE LEUK ESTERASE NEGATIVE (NEGATIVE); URINE NITRITE NEGATIVE (NEGATIVE); URINE PROTEIN NEGATIVE (NEGATIVE); URINE UROBILINOGEN 0.2 mg/dL (0.2-1.0)
[2019-02-26] MEDS ORDERED: METHADONE HCL 5 MG TABLET (FOR DETOX USE ONLY) PO ONE (10:00)
[2019-02-26] MEDS ORDERED: hydrOXYzine PAMOATE 50 MG CAPSULE (FP) PO PRN ×2 (10:12)
[2019-02-26] MEDS: PRENATAL VITAMINS W/ FOLIC ACID TABLET (FP) PO SCH (10:38)
[2019-02-26] MEDS: PARoxetine HCL 10 MG TABLET PO SCH (11:40)
--- NOTE | 2019-02-26 13:54 | PN ---
[facility] COWS - Scale Resting Pulse: 0= [place] 80 or Below Sweatin= Chills/Flushing Restless Observation: 3= Extraneous Movement Pupil Size: 0= Normal to Room Light Bone or Joint Aches: 1= Mild Discomfort Runny Nose/ Eye Tearin= None GI Upset > 30mins: 0= None Tremor Observation of Outstretched Hands: 1= Tremor [place], Not Seen Yawning Observation: 0= None Anxiety or Irritability: 1=Feels Anxious/Irritable Goose Flesh Skin: 0=Smooth Skin COWS Score: 7 BHS Progress Note (SOAP) Subjective: SLIGHT ANXIETY,SWEATS,FATIGUE. Objective: 02/26/19 13:51 Vital Signs - 24 hr 02/25/19 02/25/19 02/25/19 15:35 17:27 22:04 Temperature 98.1 F 98.1 F 97.9 F Pulse Rate 71 76 67 Respiratory 18 16 16 Rate Blood Pressure 104/66 104/59 L 113/63 02/26/19 02/26/19 02/26/19 00:30 03:30 08:09 Temperature 98.1 F Pulse Rate 58 L Respiratory 18 18 18 Rate Blood Pressure 95/60 02/26/19 02/26/19 09:31 13:15 Temperature 97.9 F 97.0 F L Pulse Rate 58 L 57 L Respiratory 18 18 Rate Blood Pressure 103/53 L 98/59 L Laboratory Tests 02/25/19 02/25/19 02/25/19 14:40 14:40 14:40 WBC 8.9 RBC 4.10 Hgb 12.9 Hct 38.2 MCV 93.2 MCH 31.4 MCHC 33.7 RDW 13.7 Plt Count 224 MPV 9.0 Sodium 140 Potassium 3.9 Chloride 106 Carbon Dioxide 29 Anion Gap 5 L BUN 13.1 Creatinine 0.8 Est GFR (CKD-EPI)AfAm 136.03 Est GFR (CKD-EPI)NonAf 117.37 Random Glucose 92 Calcium 8.9 Total Bilirubin 0.9 AST 159 H ALT 584 H Alkaline Phosphatase 111 Total Protein 7.1 Albumin 4.1 Urine Color Urine Appearance Urine pH Ur Specific [place] Urine Protein Urine Glucose (UA) Urine Ketones Urine Blood Urine Nitrite Urine Bilirubin Urine Urobilinogen Ur Leukocyte Esterase RPR Titer Nonreactive HIV 1&2 Antibody Screen HIV P24 Antigen 02/25/19 02/26/19 14:40 00:50 WBC RBC Hgb Hct MCV MCH MCHC RDW Plt Count MPV Sodium Potassium Chloride Carbon Dioxide Anion Gap BUN Creatinine Est GFR (CKD-EPI)AfAm Est GFR (CKD-EPI)NonAf Random Glucose Calcium Total Bilirubin AST ALT Alkaline Phosphatase Total Protein Albumin Urine Color Yellow Urine Appearance Cloudy Urine pH 6.0 Ur Specific [place] 1.021 Urine Protein Negative Urine Glucose (UA) Negative Urine Ketones Negative Urine Blood Negative Urine Nitrite Negative Urine Bilirubin Negative Urine Urobilinogen 0.2 Ur Leukocyte Esterase Negative RPR Titer HIV 1&2 Antibody Screen Negative HIV P24 Antigen Negative ELEVATED LIVER ENZYMES. Assessment: 02/26/19 13:51 WITHDRAWAL SX ELEVATED LIVER ENZYMES Plan: CONTINUE DETOX REPEAT LIVER ENZYMES
[2019-02-26] MEDS: GABAPENTIN 300 MG CAPSULE (FP) PO SCH ×2 (14:01→22:33)
[2019-02-26] MEDS ORDERED: OLANZapine 7.5 MG TABLET PO SCH (22:00)
[2019-02-26] MEDS: THIAMINE HCL 100 MG TABLET (FP) PO SCH (22:33)
[2019-02-27] MEDS: GABAPENTIN 300 MG CAPSULE (FP) PO SCH (05:35)
[2019-02-27] MEDS: PRENATAL VITAMINS W/ FOLIC ACID TABLET (FP) PO SCH (09:51)
[2019-02-27] MEDS: PARoxetine HCL 10 MG TABLET PO SCH (09:52)
[2019-02-27] MEDS ORDERED: METHADONE HCL 10 MG TABLET (FOR DETOX USE ONLY) PO ONE (10:00)
--- NOTE | 2019-02-27 10:13 | PN ---
[facility] COWS - Scale Resting Pulse: 0= [place] 80 or Below Sweatin= Chills/Flushing Restless Observation: 1= Difficult to Sit Still Pupil Size: 0= Normal to Room Light Bone or Joint Aches: 1= Mild Discomfort Runny Nose/ Eye Tearin= None GI Upset > 30mins: 0= None Tremor Observation of Outstretched Hands: 2= Slight Tremor Visible Yawning Observation: 1= 1-2x During Session Anxiety or Irritability: 2=Irritable/Anxious Goose Flesh Skin: 0=Smooth Skin COWS Score: 8 BHS Progress Note (SOAP) Subjective: c/o irritability, anxiety, and mild tremors. Objective: 02/27/19 10:12 Vital Signs 02/27/19 02/27/19 02/27/19 03:30 06:00 09:37 Temperature 97.7 F Pulse Rate 55 L 73 Respiratory 18 18 18 Rate Blood Pressure 100/56 L 106/76 Lab Results WBC 8.9 K/mm3 (4.0-10.0) 02/25/19 14:40 RBC 4.10 M/mm3 (4.00-5.60) 02/25/19 14:40 Hgb 12.9 GM/dL (11.7-16.9) 02/25/19 14:40 Hct 38.2 % (35.4-49) 02/25/19 14:40 MCV 93.2 fl (80-96) 02/25/19 14:40 MCHC 33.7 g/dl (32.0-35.9) 02/25/19 14:40 RDW 13.7 % (11.9-15.9) 02/25/19 14:40 Plt Count 224 K/MM3 (134-434) 02/25/19 14:40 Sodium 140 mmol/L (136-145) 02/25/19 14:40 Potassium 3.9 mmol/L (3.5-5.1) 02/25/19 14:40 Chloride 106 mmol/L (98-107) 02/25/19 14:40 Carbon Dioxide 29 mmol/L (21-32) 02/25/19 14:40 Anion Gap 5 MMOL/L (8-16) L 02/25/19 14:40 BUN 13.1 mg/dL (7-18) 02/25/19 14:40 Creatinine 0.8 mg/dL (0.55-1.3) 02/25/19 14:40 Random Glucose 92 mg/dL (74-106) 02/25/19 14:40 Calcium 8.9 mg/dL (8.5-10.1) 02/25/19 14:40 Labs noted. Assessment: 02/27/19 10:13 AOX3, in no acute respiratory distress Full ROM, ambulating in the unit. withdrawal symptoms. Plan: continue detox.
--- NOTE | 2019-02-27 13:26 | PN ---
[facility] Progress Note Note: Patient reports that he made a mistake in telling tech writer about medications that he is on and wants to make correction. Reports that he is Buspar 10 mg/tid in lieu of 15 mg/tid, Gabapentin 100 mg/tid in lieu of 300 mg/tid and Zyprexa 10 mg /hs in lieu of 15 mg/hs. Will update medication order to reflex the correction made by patient
[2019-02-27] MEDS: busPIRone HCL 10 MG TABLET (FP) PO SCH ×2 (14:27→22:25)
[2019-02-27] MEDS: GABAPENTIN 100 MG CAPSULE (FP) PO SCH ×2 (14:27→22:25)
[2019-02-27] MEDS ORDERED: hydrOXYzine PAMOATE 25 MG CAPSULE (FP) PO PRN (15:20)
[2019-02-27] MEDS ORDERED: OLANZapine 10 MG TABLET PO SCH (22:00)
[2019-02-27] MEDS: THIAMINE HCL 100 MG TABLET (FP) PO SCH (22:25)
[2019-02-28] MEDS ORDERED: METHADONE HCL 5 MG TABLET (FOR DETOX USE ONLY) PO ONE (06:00)
[2019-02-28] MEDS: busPIRone HCL 10 MG TABLET (FP) PO SCH ×2 (06:07→13:26)
[2019-02-28] MEDS: GABAPENTIN 100 MG CAPSULE (FP) PO SCH ×2 (06:07→13:26)
--- NOTE | 2019-02-28 09:00 | DS ---
[facility] Detox Discharge Summary Admission Date: 02/25/19 Discharge Date: 02/28/19 - History Present History: Alcohol Dependence, Cannabis Dependence, Cocaine Dependence, Opioid Dependence - Physical Exam Results Vital Signs: Vital Signs Temperature 96.9 F L 02/28/19 06:35 Pulse Rate 66 02/28/19 06:35 Respiratory Rate 18 02/28/19 06:35 Blood Pressure 120/68 02/28/19 06:35 O2 Sat by Pulse Oximetry (%) - Treatment Hospital Course: Detox Protocol Followed, Detoxed Safely, Responded well, Discharged Condition Good - Medication Discharge Medications: Ambulatory Orders Olanzapine [Zyprexa] 10 mg PO HS 11/25/18 Paroxetine HCl [Paxil] 10 mg PO DAILY 11/25/18 Buspirone HCl [Buspar -] 15 mg PO BID 02/25/19 hydrOXYzine PAMOATE [Vistaril -] 50 mg PO TID 02/25/19 Albuterol Sulfate Inhaler - [Ventolin HFA Inhaler -] 1 - 2 puff IH PRN PRN #1 inhaler 02/28/19 Gabapentin [Neurontin -] 100 mg PO TID #90 capsule 02/28/19 - AMA Did Patient Leave Against Medical Advice: No
[2019-02-28] MEDS: PRENATAL VITAMINS W/ FOLIC ACID TABLET (FP) PO SCH (10:06)
[2019-02-28] MEDS: PARoxetine HCL 10 MG TABLET PO SCH (10:06)
[2019-02-28 10:10] LABS: SGOT/AST 271 U/L (15-37)
[2019-02-28 10:47] LABS: SGPT/ALT 831 U/L (13-61)
[2019-02-28 17:05] VITALS: BP 102/67; PULSE 64; TEMP 97.7
== END 2019-02-28 17:35 | disposition other institution (70) | DRG 773 ==
LOC: YASAS 12:18 → Y6N 14:51
PROVIDERS: ADMIT Surgery; ATTEND Surgery
PROC: HZ2ZZZZ Detoxification Services for Substance Abuse Treatment (ICD-10-PCS; principal; 2019-02-25)
DX: F11.23 Opioid dependence with withdrawal (principal); F14.20 Cocaine dependence, uncomplicated; F12.20 Cannabis dependence, uncomplicated; F17.210 Nicotine dependence, cigarettes, uncomplicated; F19.24 Other psychoactive substance dependence with psychoactive substance-induced mood disorder; F19.280 Other psychoactive substance dependence with psychoactive substance-induced anxiety disorder; F19.282 Other psychoactive substance dependence with psychoactive substance-induced sleep disorder; F31.9 Bipolar disorder, unspecified; F43.10 Post-traumatic stress disorder, unspecified; J45.909 Unspecified asthma, uncomplicated; R94.5 Abnormal results of liver function studies; Z59.0 Homelessness
CPT/HCPCS: 36415; 80053; 81003; 84450; 84460; 85027; 86593; 87389

== ENCOUNTER 2019-02-28 17:40 | Inpatient (IN) | payer OTHER ==
[2019-02-28] MEDS ORDERED: MAG HYDROX/AL HYDROX/SIMETH 30 ML UNIT-DOSE CUP PO PRN (20:25)
[2019-02-28] MEDS ORDERED: MAGNESIUM HYDROX 2400MG/30ML ORAL SUSPENSION 30 ML CUP PO PRN (20:25)
[2019-02-28] MEDS ORDERED: MAGNESIUM CITRATE 300 ML BOTTLE PO PRN (20:25)
[2019-02-28] MEDS ORDERED: ACETAMINOPHEN 325 MG TABLET (FP) PO PRN (20:25)
[2019-02-28] MEDS ORDERED: guaiFENesin 200 MG/10 ML 10 ML UNIT-DOSE CUPS PO PRN (20:25)
[2019-02-28] MEDS ORDERED: LOPERAMIDE HCL 2 MG CAPSULE PO PRN (20:25)
[2019-02-28] MEDS ORDERED: MENTHOL/PHENOL 1 EACH UD MM PRN (20:25)
[2019-02-28] MEDS ORDERED: IBUPROFEN 400 MG TABLET (FP) PO PRN (20:25)
[2019-02-28] MEDS ORDERED: P-EPHED 60MG/TRIPROLIDI 2.5MG TABLET PO PRN (20:25)
[2019-02-28] MEDS ORDERED: ALBUTEROL SO4 8 GM HFA INHALER IH PRN (20:26)
[2019-02-28] MEDS: THIAMINE HCL 100 MG TABLET (FP) PO SCH (21:53)
[2019-02-28] MEDS: OLANZapine 10 MG TABLET PO SCH (21:53)
[2019-02-28] MEDS: hydrOXYzine PAMOATE 50 MG CAPSULE (FP) PO PRN (21:53)
[2019-02-28] MEDS: GABAPENTIN 100 MG CAPSULE (FP) PO SCH (22:18)
[2019-03-01] MEDS: GABAPENTIN 100 MG CAPSULE (FP) PO SCH ×3 (06:31→21:23)
[2019-03-01] MEDS: NICOTINE 14 MG/24 HOURS TOPICAL PATCH TD SCH (10:14)
[2019-03-01] MEDS: PRENATAL VITAMINS W/ FOLIC ACID TABLET (FP) PO SCH (10:15)
--- NOTE | 2019-03-01 12:19 | CONSULT ---
[facility] Psychiatric Consult - Data Date of interview: 03/01/19 Admission source: Transfer from [address] [place] [address].
[2019-03-01] MEDS: PARoxetine HCL 10 MG TABLET PO SCH (12:50)
[2019-03-01] MEDS: hydrOXYzine PAMOATE 50 MG CAPSULE (FP) PO PRN (16:58)
[2019-03-01] MEDS: THIAMINE HCL 100 MG TABLET (FP) PO SCH (21:23)
[2019-03-01] MEDS: OLANZapine 10 MG TABLET PO SCH (21:23)
[2019-03-01] MEDS: MELATONIN 5 MG TABLETS PO PRN (21:24)
[2019-03-02] MEDS: GABAPENTIN 100 MG CAPSULE (FP) PO SCH ×3 (06:00→21:38)
[2019-03-02] MEDS: PARoxetine HCL 10 MG TABLET PO SCH (10:52)
[2019-03-02] MEDS: NICOTINE 14 MG/24 HOURS TOPICAL PATCH TD SCH (10:52)
[2019-03-02] MEDS: PRENATAL VITAMINS W/ FOLIC ACID TABLET (FP) PO SCH (10:52)
[2019-03-02] MEDS: MELATONIN 5 MG TABLETS PO PRN (21:38)
[2019-03-02] MEDS: THIAMINE HCL 100 MG TABLET (FP) PO SCH (21:38)
[2019-03-02] MEDS: OLANZapine 10 MG TABLET PO SCH (21:38)
[2019-03-02] MEDS: hydrOXYzine PAMOATE 50 MG CAPSULE (FP) PO PRN (21:38)
[2019-03-03] MEDS: GABAPENTIN 100 MG CAPSULE (FP) PO SCH ×3 (06:32→21:26)
[2019-03-03] MEDS: PARoxetine HCL 10 MG TABLET PO SCH (10:06)
[2019-03-03] MEDS: PRENATAL VITAMINS W/ FOLIC ACID TABLET (FP) PO SCH (10:06)
[2019-03-03] MEDS: NICOTINE 14 MG/24 HOURS TOPICAL PATCH TD SCH (10:07)
--- NOTE | 2019-03-03 15:33 | PN ---
[facility] Progress Note Note: Patient spoke with provider to inquire about Suboxone MAT. Patient states he was treated with Sub-zolv in past and would like to resume treatement. Patient is currently seeking to continue treatment in [facility]. Counselor Emory informed of patients interest in suboxone MAT and to follow up with referrals to [facility] program offering services. Will check Urine tox while in patient prior to starting treatment once connection made. Vital Signs Temperature 97.9 F 03/03/19 06:44 Pulse Rate 62 03/03/19 06:44 Respiratory Rate 18 03/03/19 06:44 Blood Pressure 111/73 03/03/19 06:44 O2 Sat by Pulse Oximetry (%)
[2019-03-03] MEDS: THIAMINE HCL 100 MG TABLET (FP) PO SCH (21:26)
[2019-03-03] MEDS: MELATONIN 5 MG TABLETS PO PRN (21:27)
[2019-03-03] MEDS: OLANZapine 10 MG TABLET PO SCH (21:27)
[2019-03-03] MEDS: NICOTINE POLACRILEX 2 MG GUM BUC PRN (22:33)
[2019-03-04] MEDS: GABAPENTIN 100 MG CAPSULE (FP) PO SCH ×3 (07:18→21:20)
[2019-03-04] MEDS: PRENATAL VITAMINS W/ FOLIC ACID TABLET (FP) PO SCH (10:25)
[2019-03-04] MEDS: PARoxetine HCL 10 MG TABLET PO SCH (10:25)
[2019-03-04] MEDS: NICOTINE 14 MG/24 HOURS TOPICAL PATCH TD SCH (10:25)
[2019-03-04] MEDS: CYCLOBENZAPRINE HCL 10 MG TABLET (FP) PO PRN ×3 (11:48→21:21)
[2019-03-04] MEDS: NICOTINE POLACRILEX 2 MG GUM BUC PRN (12:50)
--- NOTE | 2019-03-04 15:45 | PN ---
S Progress Note (SOAP) Subjective: Patient requesting Sub-Zolv for treatment of substance abuse. States he cannot tolerate the sublingual and that the pill makes him feel calmer and he has less cravings. Objective: A+O x 3; skin clear, heart sounds regular, lungs clear, abd soft, non-tender, non-distended, +BS. 03/04/19 15:42 URINE DRUG SCREEN RESULTS Drug Screen Negative No Urine Drug Screen Results MTD-Methadone Vital Signs (72 hours) 03/02/19 03/02/19 03/02/19 00:30 03:30 06:56 Temperature 98 F Pulse Rate 64 Respiratory 18 18 18 Rate Blood Pressure 104/76 03/03/19 03/03/19 03/03/19 00:30 03:30 06:44 Temperature 97.9 F Pulse Rate 62 Respiratory 18 18 18 Rate Blood Pressure 111/73 03/04/19 03/04/19 03/04/19 00:30 03:30 06:59 Temperature Pulse Rate Respiratory 18 18 18 Rate Blood Pressure Assessment: Substance dependence, chronic 03/04/19 15:43 Plan: The facility does not have the pill form, Sub-Zolv. Patient was made aware and does not want to start treatment with the sublingual form. Counselor made aware.
[2019-03-04] MEDS: THIAMINE HCL 100 MG TABLET (FP) PO SCH (21:20)
[2019-03-04] MEDS: MELATONIN 5 MG TABLETS PO PRN (21:20)
[2019-03-04] MEDS: OLANZapine 10 MG TABLET PO SCH (21:20)
[2019-03-05] MEDS: GABAPENTIN 100 MG CAPSULE (FP) PO SCH ×3 (07:06→22:04)
[2019-03-05] MEDS: PRENATAL VITAMINS W/ FOLIC ACID TABLET (FP) PO SCH (10:32)
[2019-03-05] MEDS: PARoxetine HCL 10 MG TABLET PO SCH (10:32)
[2019-03-05] MEDS: NICOTINE 14 MG/24 HOURS TOPICAL PATCH TD SCH (10:33)
[2019-03-05] MEDS: CYCLOBENZAPRINE HCL 10 MG TABLET (FP) PO PRN ×2 (10:33→14:44)
[2019-03-05] MEDS: NICOTINE POLACRILEX 2 MG GUM BUC PRN ×2 (10:33→14:44)
[2019-03-05] MEDS: MELATONIN 5 MG TABLETS PO PRN (22:04)
[2019-03-05] MEDS: OLANZapine 10 MG TABLET PO SCH (22:04)
[2019-03-05] MEDS: THIAMINE HCL 100 MG TABLET (FP) PO SCH (22:04)
[2019-03-06] MEDS: GABAPENTIN 100 MG CAPSULE (FP) PO SCH ×3 (07:00→21:41)
[2019-03-06] MEDS: NICOTINE 14 MG/24 HOURS TOPICAL PATCH TD SCH (10:46)
[2019-03-06] MEDS: PARoxetine HCL 10 MG TABLET PO SCH (10:46)
[2019-03-06] MEDS: PRENATAL VITAMINS W/ FOLIC ACID TABLET (FP) PO SCH (10:46)
[2019-03-06] MEDS: NICOTINE POLACRILEX 2 MG GUM BUC PRN ×2 (10:47→15:53)
[2019-03-06] MEDS: CYCLOBENZAPRINE HCL 10 MG TABLET (FP) PO PRN ×2 (10:47→21:40)
[2019-03-06] MEDS: MELATONIN 5 MG TABLETS PO PRN (21:40)
[2019-03-06] MEDS: THIAMINE HCL 100 MG TABLET (FP) PO SCH (21:41)
[2019-03-06] MEDS: OLANZapine 10 MG TABLET PO SCH (21:41)
[2019-03-07] MEDS: GABAPENTIN 100 MG CAPSULE (FP) PO SCH ×3 (06:44→21:40)
[2019-03-07] MEDS: NICOTINE 14 MG/24 HOURS TOPICAL PATCH TD SCH (10:18)
[2019-03-07] MEDS: PARoxetine HCL 10 MG TABLET PO SCH (10:18)
[2019-03-07] MEDS: PRENATAL VITAMINS W/ FOLIC ACID TABLET (FP) PO SCH (10:18)
[2019-03-07] MEDS: OLANZapine 10 MG TABLET PO SCH (21:40)
[2019-03-07] MEDS: MELATONIN 5 MG TABLETS PO PRN (21:40)
[2019-03-07] MEDS: THIAMINE HCL 100 MG TABLET (FP) PO SCH (21:40)
[2019-03-08] MEDS: GABAPENTIN 100 MG CAPSULE (FP) PO SCH ×3 (06:31→21:32)
[2019-03-08] MEDS ORDERED: PT OWN MED DRAWER 7, Y5N ONE (09:15)
[2019-03-08] MEDS: PARoxetine HCL 10 MG TABLET PO SCH (10:22)
[2019-03-08] MEDS: PRENATAL VITAMINS W/ FOLIC ACID TABLET (FP) PO SCH (10:22)
[2019-03-08] MEDS: NICOTINE 14 MG/24 HOURS TOPICAL PATCH TD SCH (10:23)
[2019-03-08] MEDS: NICOTINE POLACRILEX 2 MG GUM BUC PRN (10:24)
[2019-03-08] MEDS: OLANZapine 10 MG TABLET PO SCH (21:32)
[2019-03-08] MEDS: THIAMINE HCL 100 MG TABLET (FP) PO SCH (21:32)
[2019-03-08] MEDS: MELATONIN 5 MG TABLETS PO PRN (21:33)
[2019-03-09] MEDS: GABAPENTIN 100 MG CAPSULE (FP) PO SCH ×3 (07:01→22:03)
[2019-03-09] MEDS: NICOTINE 14 MG/24 HOURS TOPICAL PATCH TD SCH (10:24)
[2019-03-09] MEDS: PRENATAL VITAMINS W/ FOLIC ACID TABLET (FP) PO SCH (10:24)
[2019-03-09] MEDS: PARoxetine HCL 10 MG TABLET PO SCH (10:24)
[2019-03-09] MEDS: NICOTINE POLACRILEX 2 MG GUM BUC PRN ×2 (11:57→14:02)
[2019-03-09] MEDS: MELATONIN 5 MG TABLETS PO PRN (22:03)
[2019-03-09] MEDS: OLANZapine 10 MG TABLET PO SCH (22:03)
[2019-03-09] MEDS: THIAMINE HCL 100 MG TABLET (FP) PO SCH (22:57)
[2019-03-10] MEDS: GABAPENTIN 100 MG CAPSULE (FP) PO SCH (06:54)
[2019-03-10 07:07] VITALS: BP 106/75; PULSE 80; TEMP 96.9
[2019-03-10] MEDS ORDERED: PT OWN MED DRAWER 7, Y5N ONE (08:58)
[2019-03-10] MEDS: PRENATAL VITAMINS W/ FOLIC ACID TABLET (FP) PO SCH (10:13)
[2019-03-10] MEDS: NICOTINE 14 MG/24 HOURS TOPICAL PATCH TD SCH (10:13)
[2019-03-10] MEDS: PARoxetine HCL 10 MG TABLET PO SCH (10:13)
--- NOTE | 2019-03-10 12:20 | PN ---
[facility] Progress Note Note: Patient requested early discharge from Rehab after completing 14 days. Patient stated to provider " I have to go". Patient encouraged to complete rehab as scheduled but refused and reports accomplishing all rehab goals. Patient is medically stable and denies SI/HI. Patient encouraged to continue with group meetings to prevent relapse and to follow up with PCP within 48 hours of discharge to continue medical management and follow up. Patient refused Narcan kit as he has one in his property belongings and is scheduled [facility]. D/C paper provided to patient by nursing staff. Vital Signs Temperature 96.9 F L 03/10/19 07:06 Pulse Rate 80 03/10/19 07:06 Respiratory Rate 18 03/10/19 07:06 Blood Pressure 106/75 03/10/19 07:06 O2 Sat by Pulse Oximetry (%) Ambulatory Orders Olanzapine [Zyprexa] 10 mg PO HS 11/25/18 Paroxetine HCl [Paxil] 10 mg PO DAILY 11/25/18 Buspirone HCl [Buspar -] 15 mg PO BID 02/25/19 hydrOXYzine PAMOATE [Vistaril -] 50 mg PO TID 02/25/19 Albuterol Sulfate Inhaler - [Ventolin HFA Inhaler -] 1 - 2 puff IH PRN PRN #1 inhaler 02/28/19 Gabapentin [Neurontin -] 100 mg PO TID #90 capsule 02/28/19
== END 2019-03-10 12:20 | disposition home or self-care (01) | DRG 772 ==
LOC: YASAS 17:40 → Y3W 17:41
PROVIDERS: ADMIT Neuromusculoskeletal Medicine & OMM; ATTEND Neuromusculoskeletal Medicine & OMM
PROC: HZ42ZZZ Group Counseling for Substance Abuse Treatment, Cognitive-Behavioral (ICD-10-PCS; principal; 2019-02-28)
DX: F11.20 Opioid dependence, uncomplicated (principal); F12.20 Cannabis dependence, uncomplicated; Z59.0 Homelessness